=== PATIENT | male | born 1965 | race Caucasian/White ===

== ENCOUNTER 2019-10-16 10:13 | Inpatient (IN) | payer OTHER, SELFPAY ==
[2019-10-16] VITALS (7 sets, daily range): BP systolic 109–140; BP diastolic 70–91; PULSE 69–104; RESP 14–20; TEMP 36.4–36.9; O2SAT 95–99; BMI 26.0
--- NOTE | ~2019-10-16 | CT_ITS ---
EXAMINATION: CT abdomen pelvis w con DATE: 10/16/2019 11:09 INDICATION: Left lower quadrant abdominal pain. Constipation. TECHNIQUE: Computed tomography (CT) of the abdomen and pelvis was performed with 100 cc Omnipaque 350 intravenous contrast. Automated exposure control and iterative reconstruction technique were employe d. Exam dose: 559.72 mGy-cm total exam DLP. COMPARISON: 08/03/2015 CT abdomen pelvis FINDINGS: There is bilateral dependent lower lobe atelectasis. Normal heart size. No pericardial or pleural effusion. The liver, spleen, pancreas, and adrenal glands and kidneys are unremarkable with the exception of a 2.8 cm upper pole right renal cyst. The gallbladder is present. No bile duct or pancreatic duct dilat ation. No urinary tract calculus or hydroureteronephrosis. The urinary bladder is unremarkable. Moder ate prostate enlargement. There is pericolic fat stranding in the sigmoid area, with an extraluminal collection of air and mini mal fluid measuring up to approximately 3 cm maximal dimension, with some additional locules of extra luminal gas in the area. There is thickening of the wall of the sigmoid colon. Some sigmoid diverticu la are identified. The findings are consistent with sigmoid diverticulitis and pericolic diverticular abscess containing primarily air. Otherwise no bowel obstruction, bowel wall thickening, pneumatosis or intraperitoneal free air is not ed. Normal caliber of the abdominal aorta. Stable approximately 12 mm rounded cystic area in the left per iaortic area, unchanged since 08/03/2015. No intraperitoneal or retroperitoneal or pelvic mass lesion o r adenopathy or ascites is noted otherwise. Diffuse idiopathic skeletal hyperostosis of the lower thoracic and lumbar spine. Degenerative disc di sease is noted in particular L5-S1, with mild retrolisthesis at this level. No suspicious osteolytic or osteoblastic lesions are noted. IMPRESSION: Sigmoid colon diverticulitis with approximately 3 cm pericolic abscess containing mainly air Reviewed, dictated and finalized at [facility]. Reviewed, dictated and finalized at [facility]. IMPRESSION: Sigmoid colon diverticulitis with approximately 3 cm pericolic abs cess containing mainly air
[2019-10-16 10:41] LABS: Basophils Absolute Auto 0.1 K/mm3 (0.0-0.1); Basophils Percent Auto 0.6 % (0.2-1.2); Eosinophils Percent Auto 0.3 % (0-4.4); Hematocrit 44.5 % (42.0-52.0); Hemoglobin 15.5 g/dL (14.0-18.0); Immature Granulocyte Absolute 0.06 K/mm3 (0.00-0.031); Immature Granulocyte Percent A 0.5 % (0-0.5); Lymphocytes Absolute Auto 1.28 K/mm3 (0.9-3.2); Lymphocytes Percent Auto 10.2 % (18.3-44.2); Mean Corpuscular HGB Conc 34.8 g/dl (32-36); Mean Corpuscular Hemoglobin 32.4 pg (26-34); Mean Corpuscular Volume 93.1 fl (80-100); Mean Platelet Volume 11.2 fl (7.4-10.4); Monocytes Absolute Auto 0.8 K/mm3 (0.1-0.6); Monocytes Percent Auto 6.5 % (2.6-8.5); Neutrophils Absolute Auto 10.3 K/mm3 (1.3-6.7); Neutrophils Percent Auto 81.9 % (45.5-73.1); Platelet Count Result 210 k/mm3 (150-375); Red Blood Count 4.78 M/mm3 (4.6-6.20); Red Cell Distribution Width 12.6 % (11.5-14.5); White Blood Count 12.6 K/mm3 (4.5-10.0)
--- NOTE | 2019-10-16 10:53 | ED.ABDPAIN ---
HPI - Abdominal Pain General Chief Complaint: Abdominal Pain <Buster Moulton PA-C - Last Filed: 10/16/19 12:21> Stated Complaint: abd pain <ALVINA Bell Last Filed: 10/16/19 12:21> Time Seen by Provider: 10/16/19 10:16 <ALVINA Bell Last Filed: 10/16/19 12:21> Source: patient <ALVINA Bell Last Filed: 10/16/19 12:21> Mode of arrival: ambulatory <ALVINA Bell Last Filed: 10/16/19 12:21> Limitations: no limitations <ALVINA Bell Last Filed: 10/16/19 12:21> History of Present Illness HPI narrative: Patient is a 53-year-old male who presents to emergency department for evaluation of left lower groin pain that is been present for 9 days noting that he had had some loose stools associated with it early on Wednesday he noted that he felt as though he had a fever. Patient denies sick contacts or similar occurrence in the past patient on arrival to emergency department is resting comfortably in the room in no distress. Patient has not taken anything for symptoms of is radiation of pain <ALVINA Bell Last Filed: 10/16/19 12:21> Related Data Home Medications: Home Medications Medication Instructions Recorded Confirmed No Home Medications 10/16/19 10/16/19 <Buster Moulton PA-C Last Filed: 10/16/19 12:21> Allergies/Adverse Reactions: Allergies Allergy/AdvReac Type Severity Reaction Status Date / Time No Known Allergies Allergy Verified 10/16/19 10:32 <Buster Moulton PA-C Last Filed: 10/16/19 12:21> Review of Systems Review of Systems: All systems reviewed & are unremarkable except as noted in HPI and below <Buster Moulton PA-C Last Filed: 10/16/19 12:21> [facility] Past Medical History Medical History: Medical History No significant past medical history <ALVINA Bell Last Filed: 10/16/19 12:21> Surgical History Surgical History: Surgical History History of arthroscopic knee surgery Bilateral History of shoulder surgery Right History of total left knee replacement <Buster Moulton PA-C - Last Filed: 10/16/19 12:21> Family History Family History: Family History Grandparent Heart disease Mother Breast cancer Sibling Breast cancer <Buster Moulton PA-C - Last Filed: 10/16/19 12:21> Social History Social History: Social History Social History: 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 He does not currently have a PCP, but states he has been looking to establish care with one. Wishes to be a full code. Smoking packs per day: 1 Smoking cigarettes per day: 20.0 Years smoked: 20 Smoking pack-years: 20.00 Smoking status: Current every day smoker Tobacco type: cigarettes Second hand tobacco smoke exposure: Yes Alcohol intake: current Drinks per week: 15 Substance use: current Substance use type: marijuana Other substance usage details: Uses marijuana twice weekly. Last use: Yesterday. Living arrangements: with family Additional living arrangements comments: 16 year old daughter Occupation/Education: occupation Additional occupation/education comments: Construction Gender identity (if verbalized by the patient): Male <Buster Moulton PA-C - Last Filed: 10/16/19 12:21> Exam Narrative: Exam Narrative: GENERAL: Well-appearing, well-nourished, and in no acute distress. HEAD: Normocephalic, atraumatic. EYES: PERRLA and EOMI. ENT: Nares clear, no rhinorrhea or epistaxis. Mucous membranes moist. CHEST: Clear to auscultation. No respiratory distress. No wheezes rales or rhonchi HEART: Regular rate and rhythm. N
[2019-10-16 10:54] LABS: Add Urine Microscopic? YES; Appearance Urine Clear (Clear); Bacteria Urine Trace /hpf; Bilirubin Urine Negative (Negative); Blood Urine Negative (Negative); Color Urine Yellow (Yellow); Glucose Urine UA Negative (Negative); Ketones Urine Negative (Negative); Leukocyte Esterase Ur Negative LEU/UL (Negative); Mucus Urine Rare /lpf; Nitrate Urine Negative (Negative); Protein Urine Negative (Negative); RBC Urine 0-2 /hpf (0-2); Specific Grav Ur 1.015 (1.001-1.035); WBC Urine 0-3 /hpf
[2019-10-16] MEDS: SODIUM CHLORIDE 0.9% IV 1,000 ML 999 ML IV CONT (10:57)
[2019-10-16] MEDS: FAMOTIDINE 20 MG/2 ML VIAL IV PUSH ×2 (10:57→20:31)
[2019-10-16 11:00] LABS: Alanine Aminotransferase 16 U/L (4-50); Albumin Level 4.1 g/dL (3.5-5.1); Alkaline Phosphatase 87 U/L (38-126); Aspartate Amino Transferase 19 U/L (17-59); Bilirubin,Total 0.7 mg/dL (0.2-1.3); Blood Urea Nitrogen 11 mg/dL (9-20); Calcium 8.9 mg/dL (8.4-10.2); Carbon Dioxide 30 mmol/L (22-30); Chloride 97 mmol/L (98-107); Estimated CRCL calculation 119 ml/min; Estimated Glomerular Filt Rate > 60; Glucose 134 mg/dL (75-110); Lipase 16 U/L (23-300); Potassium 3.3 mmol/L (3.4-5.0); Sodium 136 mmol/L (137-145)
--- NOTE | 2019-10-16 14:16 | PM.IMHP ---
H&P: HPI History of Present Illness Chief complaint: Sigmoid diverticulitis with abscess Narrative: Jose Daniel Macias is a 53 year old male with no significant past medical history, who presented to the emergency department for evaluation of left lower quadrant and suprapubic abdominal pain. The patient had a gradual onset of suprapubic and left lower quadrant abdominal pain about 9 days ago. He initially attributed this to constipation and was taking Dulcolax to help stimulate his bowels. He states this made his symptoms worse due to having increased abdominal pain with bowel movements. He states the pain would come and go, but was overall tolerable. Denies fever, chills, nausea, vomiting, or bloating. He did present to an urgent care last Wednesday and was not given any new medication or tests. He states he was told to hydrate and give it time. The abdominal pain continued through the past week and has not improved, therefore he presented to the emergency department for further evaluation today. CT scan of abdomen and pelvis showed sigmoid diverticulitis with a 3 cm pericolonic abscess that mainly contains gas. Labs revealed a white blood cell count of 12,600 and potassium 3.3. Our service was contacted by the ED provider for the perforated sigmoid diverticulitis. The patient is being admitted to our service and is now being seen in the emergency department. He reports that his abdominal pain is very mild at rest. He overall reports minimal pain, but was mainly concerned that the pain has not resolved. 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 Reports low oral intake over the past week because he is trying to avoid bowel movements, since they increase his abdominal pain. Denies blood in the stool but reports mucousy stools over the past few days. Reports a subjective fever 9 days ago when symptoms started of 100F, but no fever or chills since then. Denies ever having a colonoscopy in the past. Denies any history of diverticulitis prior to this occurrence. No other changes in his bowel movements prior to the onset of symptoms. No other complaints at this time. Review of Systems Constitutional: Constitutional: Reports as per HPI, Denies chills, Denies excessive sweating, Denies fatigue, Denies fever(s), Denies headache(s) and Denies weakness Eyes: Eyes: Denies change in vision and Denies loss of vision ENT: Reports Normal hearing present, Denies dizziness and Denies headache(s) Cardiovascular: Cardiovascular: Denies chest pain, Denies syncope, Denies leg edema, Denies lightheadedness, Denies radiating jaw, neck or arm pain and Denies dyspnea Respiratory: Respiratory: Denies cough, Denies dyspnea and Denies wheezing Gastrointestinal: Gastrointestinal: Reports as per HPI, Reports no additional gastrointestinal complaints, Reports abdominal pain, Denies melena, Denies bloating, Denies hematochezia, Denies change in bowel habits, Denies constipation, Denies dysphagia, Denies diarrhea, Reports loose stools (with mucous), Denies nausea and Denies vomiting Genitourinary: Genitourinary: Reports no additional male genitourinary complaints, Denies hematuria and Denies dysuria Musculoskeletal: Musculoskeletal: Denies deformity, Denies joint swelling, Denies radiating pain into limb and Denies tingling Integumentary/Breasts: Skin/Breast: Denies pruritus, Denies wounds and Denies jaundice Neurologic: Reports Normal hearing present, Denies confusion, Denies dizziness, Denies syncope, Denies headache(s), Denies loss of vision, Denies tingling, Denies tremor(s) and Denies weakness Psychiatric: Psychiatric: Denies anxiety, Denies confusion and Denies depression Endocrine: Endocrine: Denies cold intolerance, Denies excessive sweating, Denies fatigue and Denies heat intolerance [facility] Past Medical History Medical History No significant past medical history
--- NOTE | 2019-10-16 16:15 | ADMGEN ---
This patient, Jose Daniel Macias, was admitted to [facility] Surg Room 311-01. Patient/family oriented to hospital policies and general routines including ID bracelet, bed and alarms, visiting hours, pain management, procedures, bathroom and other care routines, personal items, smoking policy, room service/diet, and visiting hours. Valuables list has been completed. Information on how to activate the Rapid Response Team has been discussed. Patient/Family are encouraged to report perceived risks to care and to ask questions if they do not understand what they are told or what they should do.
[2019-10-16] MEDS: LACTATED RINGERS 1,000 ML 125 ML IV CONT (17:17)
[2019-10-16] MEDS: NICOTINE (*PBKC) 21 MG PATCH 1 PATCH TRANSDERM (20:31)
[2019-10-17] VITALS (10 sets, daily range): BP systolic 114–165; BP diastolic 64–76; PULSE 71–91; RESP 14–20; TEMP 36.6–37.1; O2SAT 95–100
[2019-10-17 06:04] LABS: Basophils Absolute Auto 0.1 K/mm3 (0.0-0.1); Basophils Percent Auto 0.7 % (0.2-1.2); Eosinophils Absolute Auto 0.2 K/mm3 (0-0.3); Eosinophils Percent Auto 1.8 % (0-4.4); Hematocrit 41.4 % (42.0-52.0); Immature Granulocyte Absolute 0.04 K/mm3 (0.00-0.031); Immature Granulocyte Percent A 0.4 % (0-0.5); Lymphocytes Absolute Auto 1.11 K/mm3 (0.9-3.2); Lymphocytes Percent Auto 12.4 % (18.3-44.2); Mean Corpuscular HGB Conc 33.8 g/dl (32-36); Mean Corpuscular Hemoglobin 31.7 pg (26-34); Mean Corpuscular Volume 93.9 fl (80-100); Mean Platelet Volume 11.5 fl (7.4-10.4); Monocytes Absolute Auto 0.6 K/mm3 (0.1-0.6); Monocytes Percent Auto 6.5 % (2.6-8.5); Neutrophils Percent Auto 78.2 % (45.5-73.1); Platelet Count Result 193 k/mm3 (150-375); Red Blood Count 4.41 M/mm3 (4.6-6.20); Red Cell Distribution Width 12.4 % (11.5-14.5); White Blood Count 8.9 K/mm3 (4.5-10.0)
[2019-10-17 06:21] LABS: Blood Urea Nitrogen 9 mg/dL (9-20); Calcium 8.5 mg/dL (8.4-10.2); Carbon Dioxide 29 mmol/L (22-30); Chloride 100 mmol/L (98-107); Estimated CRCL calculation 102 ml/min; Estimated Glomerular Filt Rate > 60; Glucose 81 mg/dL (75-110); Potassium 3.5 mmol/L (3.4-5.0); Sodium 136 mmol/L (137-145)
[2019-10-17] MEDS: LACTATED RINGERS 1,000 ML 125 ML IV CONT ×2 (07:43→16:40)
[2019-10-17] MEDS: FAMOTIDINE 20 MG/2 ML VIAL IV PUSH ×2 (07:45→21:11)
--- NOTE | 2019-10-17 10:54 | PM.PNGS ---
Progress Note: A&P Assessment and Plan (1) Diverticulitis of intestine with abscess: Qualifiers: Diverticulitis bleeding: without bleeding Diverticulitis site: large intestine Qualified Code(s): K57.20 - Diverticulitis of large intestine with perforation and abscess without bleeding Code(s): K57.80 - Diverticulitis of intestine, part unspecified, with perforation and abscess without bleeding Status: Acute Assessment and Plan: Patient still with only minimal abdominal pain. fly frame tender on exam. WBC normal and he remains afebrile. Will allow him to try sips of clear liquids today. Continue broad-spectrum IV antibiotics. Repeat labs again in the am. (2) Tobacco abuse: Code(s): Z72.0 - Tobacco use Status: Acute Assessment and Plan: Nicotine patch ordered. Encouraged cessation. (3) Heavy alcohol use: Code(s): Z78.9 - Other specified health status Status: Acute Assessment and Plan: On CIWA protocol. No signs of withdrawal today and score remains 0. Continue to monitor. Additional Plan Discussed plan of care with Dr. Sanz. Subjective Subjective Date/Time Seen: 10/17/19 10:00 Patient reports: no new complaints, flatus and bowel movement (mucousy BM) Interval history: Patient reports LLQ and suprapubic abdominal pain is about the same today with the same amount of tenderness. Reports flatus and mucous-like BM this morning and last night. No nausea, vomiting, or bloating. No other complaints at this time. Review of Systems Review of Systems: All systems reviewed & are unremarkable except as noted in HPI and below Constitutional: Constitutional: Reports no additional constitutional complaints, Denies chills, Denies fever(s), Denies headache(s), Denies night sweats and Denies weakness Cardiovascular: Cardiovascular: Reports no additional cardiovascular complaints, Denies chest pain and Denies leg edema Respiratory: Respiratory: Reports no additional respiratory complaints, Denies cough and Denies dyspnea Gastrointestinal: Gastrointestinal: Reports as per HPI and Reports no additional gastrointestinal complaints Neurologic: Denies confusion and Denies headache(s) Exam Const: General: no acute distress, alert and awake Orientation/consciousness: patient oriented x3 Resp: Effort & Inspection: normal respiratory effort and no respiratory distress Auscultation: clear to auscultation bilaterally Cardio: Rate: regular rate Rhythm: regular rhythm GI: Inspection: normal to inspection and non-distended GI Palp: Yes Soft to palpation, Yes Tenderness to palpation present (GI) (suprapubic and LLQ), No Guarding due to palpation present (GI) and No Rebound tenderness present Auscultation: normal bowel sounds Neuro: General: moves all extremities and no focal motor deficits Extrem: General: no clubbing, cyanosis or edema Psych: Mental Status: mental status grossly normal Affect: normal affect Insight: Good insight present (Psych) Judgement: Good judgement present (Psych) Objective Data Vital Signs Vital Signs: Vital Signs - 24 hr 10/16/19 11:45 10/16/19 12:45 10/16/19 13:45 Temperature Pulse Rate 87 85 77 Pulse Rate [Apical] Pulse Rate [Monitor] Respiratory Rate 18 14 20 Blood Pressure 121/84 109/78 118/75 Pulse Oximetry 99 99 95 10/16/19 16:00 10/16/19 20:00 10/17/19 00:00 Temperature 98.1 F 98.5 F 98.5 F Pulse Rate 69 71 75 Pulse Rate [Apical] 91 Pulse Rate [Monitor] 71 Respiratory Rate 18 18 20 Blood Pressure 115/70 119/82 117/64 Pulse Oximetry 97 97 96 10/17/19 04:00 10/17/19 07:46 10/17/19 10:00 Temperature 97.9 F 98.1 F Pulse Rate 78 78 74 Pulse Rate [Apical] 91 91 Pulse Rate [Monitor] 71 71 Respiratory Rate 20 20 18 Blood Pressure 114/70 114/70 127/68 Pulse Oximetry 95 95 96 Intake/Output Intake/Output: Intake & Output 10/14/19 10/15/19 10/16/19 10/17/19 23:59 23:59 23:59 23:59 Intake Total
[2019-10-17] MEDS: NICOTINE (*PBKC) 21 MG PATCH 1 PATCH TRANSDERM (12:10)
[2019-10-18 04:00] VITALS: PULSE 76
[2019-10-18 06:00] VITALS: BP 119/76; PULSE 68; RESP 20; TEMP 36.8; O2SAT 100
[2019-10-18 06:19] LABS: Hematocrit 43.7 % (42.0-52.0); Mean Corpuscular HGB Conc 34.3 g/dl (32-36); Mean Corpuscular Hemoglobin 31.8 pg (26-34); Mean Corpuscular Volume 92.8 fl (80-100); Mean Platelet Volume 11.5 fl (7.4-10.4); Platelet Count Result 212 k/mm3 (150-375); Red Blood Count 4.71 M/mm3 (4.6-6.20); Red Cell Distribution Width 12.1 % (11.5-14.5); White Blood Count 8.7 K/mm3 (4.5-10.0)
[2019-10-18 06:35] LABS: Blood Urea Nitrogen 7 mg/dL (9-20); Calcium 8.7 mg/dL (8.4-10.2); Carbon Dioxide 32 mmol/L (22-30); Chloride 99 mmol/L (98-107); Estimated CRCL calculation 115 ml/min; Estimated Glomerular Filt Rate > 60; Glucose 89 mg/dL (75-110); Potassium 3.8 mmol/L (3.4-5.0); Sodium 135 mmol/L (137-145)
[2019-10-18] MEDS: LACTATED RINGERS 1,000 ML 80 ML IV CONT (08:36)
[2019-10-18] MEDS: FAMOTIDINE 20 MG/2 ML VIAL IV PUSH (08:37)
[2019-10-18] MEDS: NICOTINE (*PBKC) 21 MG PATCH 1 PATCH TRANSDERM (08:41)
--- NOTE | 2019-10-18 11:54 | PM.DS ---
DS: Admitting Diagnosis Admitting Diagnosis Admitting Diagnosis: Diverticulitis of large intestine with perforation and abscess without bleeding DS: Discharge Diagnosis Discharge Diagnosis (1) Diverticulitis of intestine with abscess: Qualifiers: Diverticulitis bleeding: without bleeding Diverticulitis site: large intestine Qualified Code(s): K57.20 - Diverticulitis of large intestine with perforation and abscess without bleeding Code(s): K57.80 - Diverticulitis of intestine, part unspecified, with perforation and abscess without bleeding Status: Acute Assessment and Plan: Discussed completing antibiotics as an outpatient and following up with a repeat CT. We will have dietitian discuss low-fiber diet and high-fiber diet. Will have patient follow up in the office in 2 weeks after getting a repeat CT. (2) Heavy alcohol use: Code(s): Z78.9 - Other specified health status Status: Acute (3) Tobacco abuse: Code(s): Z72.0 - Tobacco use Status: Acute DS: Summary Hospital Course Reason for hospitalization: Perforated diverticulitis with abscess Hospital Course: this is a 53-year-old man who presented to the emergency department with severe lower abdominal pain. He had been experiencing pain for over a week that was gradually worsening. He did have some fevers early on as well. He had never experienced pains like this in the past. He was found to have evidence of perforated diverticulitis with abscess CT. This is 1st episode of diverticulitis. Since being admitted, his pain has gradually improved. His white blood count normalized and he remained afebrile. His diet was slowly advanced from clear liquids to a low fiber diet as tolerated. He was discharged once tolerating a low-fiber diet. Plans will be for patient to complete a 2 week course of Augmentin and Flagyl. Will get a repeat CT abdomen and pelvis with contrast in 2 weeks and have patient follow up in office after CT has been completed. Will eventually [facility] for colonoscopy as an outpatient. Time spent discussing smoking cessation with patient: 3 to 10 minutes Status at Discharge Functional status at discharge: independent ambulation Overall status at discharge: patient is back to baseline Time Spent with Patient Time attestation: Total time spent providing and/or coordinating discharge services: Time spent: Less than 30 minutes Exam Const: General: no acute distress Neck: Neck: supple and no JVD Resp: Effort & Inspection: normal respiratory effort Auscultation: clear to auscultation bilaterally Cardio: Rate: regular rate Rhythm: regular rhythm GI: Inspection: non-distended GI Palp: Yes Soft to palpation, No Tenderness to palpation present (GI) and No Guarding due to palpation present (GI) Neuro: General: gait normal Extrem: General: normal to inspection Psych: Appearance: grossly normal Mental Status: mental status grossly normal Speech and movement: Normal speech and movement present Thought content: Yes Normal thought content present DS: Data Data Completed and Pending Labs on day of discharge: Labs from last 24 hours 10/18/19 10/18/19 05:41 05:41 WBC 8.7 RBC 4.71 Hgb 15.0 Hct 43.7 MCV 92.8 MCH 31.8 MCHC 34.3 RDW 12.1 Plt Count 212 MPV 11.5 H Sodium 135 L Potassium 3.8 Chloride 99 Carbon Dioxide 32 H BUN 7 L Creatinine 0.70 Estim Creat Clear Calc 115 Estimated GFR > 60 Glucose 89 Calcium 8.7 Discharge Plan Discharge Attending physician on discharge: Moe Sanz Consulting providers: Antwan Tse ; Buster Moulton Discharging Clinician: Moe Sanz Anticipated Discharge Date/Time: 10/18/19 15:00 Patient Disposition: Home, Self-Care Activity: unlimited Diet: low fiber Discharge Instructions: Continue Low fiber diet for 2-4 weeks based on symptoms Call office or return to ED if experiencing
[2019-10-18 12:00] VITALS: BP 119/76; PULSE 71
== END 2019-10-18 13:53 | disposition home or self-care (01) | DRG 392 ==
LOC: ANHED 12:26 → ANH3MEDSUR 13:32
PROVIDERS: Emergency Medicine Emergency Medical Services; Nurse Practitioner Family; Admitting Provider Surgery; Emergency Provider General Practice; Visit Provider Surgery
DX: K57.20 Diverticulitis of large intestine with perforation and abscess without bleeding (principal); F17.210 Nicotine dependence, cigarettes, uncomplicated; Z78.9 Other specified health status
CPT/HCPCS: 36415; 74177; 80048; 80053; 81001; 83690; 85025; 85027; 96365; 96367; 96375; 99285; A9270; J0131; J2543; J3480; J7030; J7120; Q9967

== ENCOUNTER → 2019-11-01 14:22 | Outpatient (CLI) | payer OTHER, SELFPAY ==
--- NOTE | ~2019-11-01 | CT_ITS ---
EXAMINATION: CT abdomen pelvis w con DATE: 11/01/2019 14:46 INDICATION: Diverticulitis TECHNIQUE: Computed tomography (CT) of the abdomen and pelvis was performed with 100 cc Omnipaque 350 intravenous contrast. Automated exposure control and iterative reconstruction technique were employe d. Exam dose: 632.49 mGy-cm total exam DLP. COMPARISON: 10/16/2019 CT abdomen pelvis. FINDINGS: The lung bases are clear of infiltrate or consolidation. Normal heart size. No pericardial or pleural effusion. Small sliding hiatal hernia. No hepatic, splenic, pancreatic or adrenal space-occupying mass lesion. The gallbladder is present. N o bile duct or pancreatic duct dilatation. Exophytic 2.8 cm upper pole right renal cyst. Normal caliber of the abdominal aorta. No intraperitoneal or retroperitoneal or pelvic mass lesion or adenopathy or ascites. The urinary bladder is unremarkable. Prostate gland and seminal vesicles are unremarkable. Normal appendix. Diverticulosis of the colon. There is mild residual fat stranding adjacent to the sigmoid colon but n o fluid containing drainable abscess is identified.. No abscess is identified. No bowel obstruction, bowel wall thickening, pneumatosis or intraperitoneal free air. Bilateral hip osteoarthritis. Degenerative spurring of the thoracic and lumbar spine IMPRESSION: Mild residual pericolic fat stranding in the sigmoid colon area consistent with mild res idual diverticulitis; no drainable fluid containing abscess is identified Reviewed, dictated and finalized at [facility]. Reviewed, dictated and finalized at [facility]. IMPRESSION: Mild residual pericolic fat stranding in the sigmoid colon area co nsistent with mild residual diverticulitis; no drainable fluid containing absce ss is identified
== END ==
PROVIDERS: Visit Provider Surgery
DX: K57.80 Diverticulitis of intestine, part unspecified, with perforation and abscess without bleeding (principal)
CPT/HCPCS: 74177; Q9967

== ENCOUNTER → 2020-08-13 04:10 | Outpatient (CLI) | payer OTHER, SELFPAY ==
[2020-08-13 20:06] LABS: SARS-CoV-2 RNA PCR Negative
== END ==
PROVIDERS: Visit Provider Internal Medicine Gastroenterology
DX: Z01.812 Encounter for preprocedural laboratory examination (principal); Z20.822 Contact with and (suspected) exposure to COVID-19
CPT/HCPCS: C9803; U0003; U0005

== ENCOUNTER 2020-08-16 02:07 | Day surgery (SDC) | payer OTHER, SELFPAY ==
[2020-08-07 13:44] VITALS: BMI 25.6
[2020-08-16] MEDS: LACTATED RINGERS 1,000 ML 150 ML IV CONT (13:21)
[2020-08-16 13:22] VITALS: BP 118/79; PULSE 76; RESP 18; TEMP 36.4; O2SAT 98; BMI 24.7
--- NOTE | 2020-08-16 13:33 | WPDANESEPPF ---
Anes - Initial Pre Proc Eval Procedure: Operation Date: 08/16/20 14:15 Proposed Procedures p Colonoscopy - Gomez Melo MD Date/Time: 08/16/20 13:33 Surgeon: Gomez Melo MD Pre Op Diagnosis: diverticulitis,abd pain, change in bowel habits Patient Data Age: 54 Gender: M Height: 6 ft 1 in Weight: 85 kg Last Vital Signs Temp 97.6 F 08/16/20 13:22 Pulse 76 08/16/20 13:22 Resp 18 08/16/20 13:22 BP 118/79 08/16/20 13:22 Pulse Ox 98 08/16/20 13:22 Allergies Allergy/AdvReac Type Severity Reaction Status Date / Time No Known Allergies Allergy Verified 08/07/20 13:40 Home Medications Medication Instructions Recorded Confirmed Type varenicline [Chantix] 1 mg PO BID 08/07/20 08/07/20 History Patient hx anesthesia problems: none Family hx anesthesia problems: none PMFSH Past Medical History Medical History (Updated 07/10/20 @ 15:31 by IVETTE Shaikh) Encounter for screening colonoscopy No significant past medical history Surgical History Surgical History History of arthroscopic knee surgery Bilateral History of shoulder surgery Right History of total left knee replacement Family History Family History Grandparent Heart disease Mother Breast cancer Sibling Breast cancer Social History Social History Social History: 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 He does not currently have a PCP, but states he has been looking to establish care with one. Wishes to be a full code. Smoking packs per day: 1 Smoking cigarettes per day: 20.0 Years smoked: 25 Smoking pack-years: 25.00 Smoking status: Current every day smoker Tobacco type: cigarettes Second hand tobacco smoke exposure: Yes Additional smoking assessment comments: ON CHANTIX, TRYING TO QUIT Alcohol intake: current Drinks per week: 14 Substance use: current Substance use type: marijuana Other substance usage details: Uses marijuana twice weekly. Last use: Yesterday. 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 Questions were solicited and answers provided to the satisfaction of the patient/family/POA.
--- NOTE | 2020-08-16 13:52 | PM.HPGS ---
History of Present Illness History of Present Illness Consent: Risks, benefits, and alternatives have been discussed and questions answered. Patient agrees to proceed with procedure. Chief complaint: diverticulitis,abd pain, change in bowel habits Narrative: Jose Daniel Macias is a 54 year old male with diverticulitis last year, never had a colonoscopy Review of Systems Constitutional: Constitutional: Denies headache(s) and Denies weakness Eyes: Eyes: Denies blurry vision ENT: Reports Normal hearing present, Denies headache(s) and Denies neck pain Cardiovascular: Cardiovascular: Denies chest pain and Denies dyspnea Respiratory: Respiratory: Denies dyspnea Gastrointestinal: Gastrointestinal: Reports no additional gastrointestinal complaints Genitourinary: Genitourinary: Denies dysuria Musculoskeletal: Musculoskeletal: Denies neck pain Integumentary/Breasts: Skin/Breast: Denies dry skin Neurologic: Reports Normal hearing present, Denies headache(s) and Denies weakness Psychiatric: Psychiatric: Denies anxiety Endocrine: Endocrine: Denies change in body appearance Hematologic/Lymphatic: Hematologic/Lymphatic: Denies easy bleeding Allergic/Immunologic: Allergic/Immunologic: Denies urticaria PMF Past Medical History Medical History (Updated 07/10/20 @ 15:31 by IVETTE Shaikh) Encounter for screening colonoscopy No significant past medical history Surgical History Surgical History History of arthroscopic knee surgery Bilateral History of shoulder surgery Right History of total left knee replacement Family History Family History Grandparent Heart disease Mother Breast cancer Sibling Breast cancer Social History Social History Social History: 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 He does not currently have a PCP, but states he has been looking to establish care with one. Wishes to be a full code. Smoking packs per day: 1 Smoking cigarettes per day: 20.0 Years smoked: 25 Smoking pack-years: 25.00 Smoking status: Current every day smoker Tobacco type: cigarettes Second hand tobacco smoke exposure: Yes Additional smoking assessment comments: ON CHANTIX, TRYING TO QUIT Alcohol intake: current Drinks per week: 14 Substance use: current Substance use type: marijuana Other substance usage details: Uses marijuana twice weekly. Last use: Yesterday. 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 Gender identity (if verbalized by the patient): Male Spiritual care concerns: No Meds Home Medications and Allergies Home Medications Medication Instructions Recorded Confirmed Type varenicline [Chantix] 1 mg PO BID 08/07/20 08/07/20 History Allergies Allergy/AdvReac Type Severity Reaction Status Date / Time No Known Allergies Allergy Verified 08/07/20 13:40 Vital Signs Vital Signs - 24 hr 08/16/20 13:22 Temperature 97.6 F Pulse Rate 76 Respiratory Rate 18 Blood Pressure 118/79 Pulse Oximetry 98 Exam Const: General: comfortable and no acute distress HENMT: General nose exam: Normal nares present Eyes: General: appearance normal, both eyes and all related structures Neck: Neck: no JVD Resp: Auscultation: clear to auscultation bilaterally Cardio: Rate: regular rate Rhythm: regular rhythm GI: Inspection: non-distended GI Palp: Yes Soft to palpation Skin: General skin exam: normal color Neuro: General: gait normal Speech: normal speech Extrem: General: normal to inspection Psych: Mental Status: mental status grossly normal Assessment and Plan Assessment and plan (1) Enc
--- NOTE | 2020-08-16 14:07 | SUR.OPER ---
Resolution Clips Lot [id number] [facility] 2023-05-29
--- NOTE | 2020-08-16 14:27 | SUR.OPER ---
Resolution Clip Placement in Transverse Colon Lot [id number] Exp 2023-06-07
[2020-08-16 14:36] VITALS: BP 101/68; PULSE 72; RESP 20; O2SAT 98
[2020-08-16 14:46] VITALS: BP 108/74; PULSE 71; RESP 16; O2SAT 100
[2020-08-16 14:56] VITALS: BP 124/92; PULSE 77; RESP 18; O2SAT 100
== END 2020-08-16 15:10 | disposition home or self-care (01) ==
PROVIDERS: Visit Provider Internal Medicine Gastroenterology
PROC: 0DJD8ZZ Inspection of Lower Intestinal Tract, Via Natural or Artificial Opening Endoscopic (ICD-10-PCS; CPT 45378; principal; 2020-08-16 14:15)
DX: Z12.11 Encounter for screening for malignant neoplasm of colon (principal); D12.3 Benign neoplasm of transverse colon; K63.5 Polyp of colon; K57.30 Diverticulosis of large intestine without perforation or abscess without bleeding; K64.8 Other hemorrhoids; F17.210 Nicotine dependence, cigarettes, uncomplicated; F12.90 Cannabis use, unspecified, uncomplicated
CPT/HCPCS: 45385; 45381; 88305; C9803; J2704; J7120; U0003; U0005

== ENCOUNTER 2021-12-08 00:38 | Day surgery (SDC) | payer OTHER, SELFPAY ==
[2021-11-25 12:34] VITALS: BMI 25.9
--- NOTE | 2021-12-08 07:06 | WPDANESEPPF ---
Anes - Initial Pre Proc Eval Procedure: Operation Date: 12/08/21 08:30 Proposed Procedures p Screening Colonoscopy - Gomez Melo MD Date/Time: 12/08/21 07:06 Surgeon: Gomez Melo MD Pre Op Diagnosis: history of colon polyp Patient Data Age: 56 Gender: M Height: 1.85 m Weight: 89 kg Allergies Allergy/AdvReac Type Severity Reaction Status Date / Time No Known Allergies Allergy Verified 12/08/21 07:39 Home Medications Medication Instructions Recorded Confirmed Type No Home Medications 12/08/21 12/08/21 History Patient hx anesthesia problems: none Family hx anesthesia problems: none Results Review: All pre-operative results and documents have been reviewed as part of the pre-operative evaluation. 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 He does not currently have a PCP, but states he has been looking to establish care with one. Wishes to be a full code. Smoking packs per day: 1 Smoking cigarettes per day: 20.0 Years smoked: 22 Smoking pack-years: 22.00 Smoking status: Current every day smoker Tobacco type: cigarettes Second hand tobacco smoke exposure: Yes Additional smoking assessment comments: ON CHANTIX, TRYING TO QUIT Alcohol intake: current Drinks per week: 14 Substance use: current Substance use type: marijuana Other substance usage details: twice a week Last use: Yesterday. 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 Informed Consent: The patient's anesthetic plan and its attendant risks and benefits were discussed with the patient/family/POA. Questions were solicited and answers provided to the satisfaction of the patient/family/POA.
[2021-12-08 07:40] VITALS: BP 111/76; PULSE 73; RESP 18; TEMP 36.3; O2SAT 98
[2021-12-08] MEDS: LACTATED RINGERS 1,000 ML 150 ML IV CONT (07:49)
--- NOTE | 2021-12-08 08:24 | PM.HPGS ---
History of Present Illness History of Present Illness Consent: Risks, benefits, and alternatives have been discussed and questions answered. Patient agrees to proceed with procedure. Chief complaint: history of colon polyp Narrative: Jose Daniel Macias is a 56 year old male with large TA polyps removed 1 year ago Review of Systems Constitutional: Constitutional: Denies headache(s) and Denies weakness Eyes: Eyes: Denies blurry vision ENT: Reports Normal hearing present, Denies headache(s) and Denies neck pain Cardiovascular: Cardiovascular: Denies chest pain and Denies dyspnea Respiratory: Respiratory: Denies dyspnea Gastrointestinal: Gastrointestinal: Reports no additional gastrointestinal complaints Genitourinary: Genitourinary: Denies dysuria Musculoskeletal: Musculoskeletal: Denies neck pain Integumentary/Breasts: Skin/Breast: Denies dry skin Neurologic: Reports Normal hearing present, Denies headache(s) and Denies weakness Psychiatric: Psychiatric: Denies anxiety Endocrine: Endocrine: Denies change in body appearance Hematologic/Lymphatic: Hematologic/Lymphatic: Denies easy bleeding Allergic/Immunologic: Allergic/Immunologic: Denies urticaria PMFSH Past Medical History Medical History (Updated 12/08/21 @ 08:25 by Gomez Melo MD) Adenomatous colon polyp Encounter for screening colonoscopy No significant past medical history Surgical History Surgical History History of arthroscopic knee surgery Bilateral History of shoulder surgery Right History of total left knee replacement Family History Family History Grandparent Heart disease Mother Breast cancer Sibling Breast cancer Social History Social History Social History: 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 He does not currently have a PCP, but states he has been looking to establish care with one. Wishes to be a full code. Smoking packs per day: 1 Smoking cigarettes per day: 20.0 Years smoked: 22 Smoking pack-years: 22.00 Smoking status: Current every day smoker Tobacco type: cigarettes Second hand tobacco smoke exposure: Yes Additional smoking assessment comments: ON CHANTIX, TRYING TO QUIT Alcohol intake: current Drinks per week: 14 Substance use: current Substance use type: marijuana Other substance usage details: twice a week Last use: Yesterday. 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 Gender identity (if verbalized by the patient): Male Spiritual care concerns: No Meds Home Medications and Allergies Home Medications Medication Instructions Recorded Confirmed Type No Home Medications 12/08/21 12/08/21 History Allergies Allergy/AdvReac Type Severity Reaction Status Date / Time No Known Allergies Allergy Verified 12/08/21 07:39 Vital Signs Vital Signs - 24 hr 12/08/21 07:40 Temperature 97.4 F L Pulse Rate 73 Respiratory Rate 18 Blood Pressure 111/76 Pulse Oximetry 98 Oxygen Delivery Room Air Exam Const: General: comfortable and no acute distress HENMT: General nose exam: Normal nares present Eyes: General: appearance normal, both eyes and all related structures Neck: Neck: no JVD Resp: Auscultation: clear to auscultation bilaterally Cardio: Rate: regular rate Rhythm: regular rhythm GI: Inspection: non-distended GI Palp: Yes Soft to palpation Skin: General skin exam: normal color Neuro: General: gait normal Speech: normal speech Extrem: General: normal to inspection Psych: Mental Status: mental status grossly normal Assessment and Plan Assessment and plan (1) Adenomatous col
[2021-12-08 08:48] VITALS: BP 102/68; PULSE 70; RESP 18; O2SAT 97
[2021-12-08 08:58] VITALS: BP 119/73; PULSE 66; RESP 18; O2SAT 100
[2021-12-08 09:08] VITALS: BP 113/58; PULSE 68; RESP 18; O2SAT 100
== END 2021-12-08 09:20 | disposition home or self-care (01) ==
PROVIDERS: Visit Provider Internal Medicine Gastroenterology
PROC: 0DJD8ZZ Inspection of Lower Intestinal Tract, Via Natural or Artificial Opening Endoscopic (ICD-10-PCS; CPT 45378; principal; 2021-12-08 08:30)
DX: Z12.11 Encounter for screening for malignant neoplasm of colon (principal); K64.8 Other hemorrhoids; K57.30 Diverticulosis of large intestine without perforation or abscess without bleeding; D12.4 Benign neoplasm of descending colon; F17.210 Nicotine dependence, cigarettes, uncomplicated; F12.90 Cannabis use, unspecified, uncomplicated
CPT/HCPCS: 45385; 88305; J2704; J7120